=== PATIENT | male | born 1985 | race Hispanic/Latino ===

== ENCOUNTER 2018-03-19 02:02 | Emergency (ER) | payer SELFPAY ==
[2018-03-19 02:11] VITALS: O2SAT 96
[2018-03-19] MEDS ORDERED: Sodium Chloride 0.9% 1,000 ML IV STA ×2 (02:20→07:01)
--- NOTE | 2018-03-19 02:55 | ED PDOC ---
HPI: Psych/Substance Abuse Time Seen by Provider: 03/19/18 02:19 Chief Complaint (Nursing): Substance Abuse ED Caveat: Intoxicated History Per: Other (Girlfriend) Onset/Duration Of Symptoms: Hrs Current Symptoms Are (Timing): Still Present Additional Complaint(s): (Hx limited by intoxication, history gathered by girlfriend) No PMHx presenting with alcohol intoxication and possible overdose. Girlfriend states that it is the one year anniversary of his brother's and also has a terminally ill father, has had a lot of home stress and today drank alcohol and took 3 benadryl to "kill himself." Patient denies this, states he feels fine, states he did not take benadryl but took "xanax", 3 pills to go to sleep, but denies suicidal or homidical ideation. Girlfriend states that he has made suicidal remarks in the past. Past Medical History Reviewed: Vital Signs, Unable To Obtain Vital Signs: Last Vital Signs Temp 97.8 F 03/19/18 02:08 Pulse 125 H 03/19/18 02:08 Resp 17 03/19/18 02:08 BP 155/106 H 03/19/18 02:08 Pulse Ox 96 03/19/18 02:08 - Family History Family History: States: Unknown Family Hx - Immunization History Hx Tetanus Toxoid Vaccination: No - Home Medications Home Medications: Ambulatory Orders Medication Instructions Recorded Cephalexin [Keflex] 500 mg PO TID #21 tab 09/29/15 - Allergies Allergies/Adverse Reactions: Allergies Allergy/AdvReac Type Severity Reaction Status Date / Time No Known Allergies Allergy Verified 09/29/15 13:18 Review of Systems Review Of Systems: ROS cannot be obtained secondary to pt's inabilty to answer questions. Physical Exam - Reviewed Nursing Documentation Reviewed: Yes Vital Signs Reviewed: Yes - Physical Exam Appears: Negative for: Well (Disheveled, intoxicated appearing) Head Exam: Positive for: ATRAUMATIC, NORMAL INSPECTION, NORMOCEPHALIC Skin: Positive for: Normal Color, Warm, DRY Eye Exam: Positive for: EOMI, Normal appearance, PERRL ENT: Positive for: Other (Dry mucus membranes, cracked lips) Neck: Positive for: Normal, Painless ROM, Supple Cardiovascular/Chest: Positive for: Tachycardia Respiratory: Positive for: CNT, Normal Breath Sounds Gastrointestinal/Abdominal: Positive for: Normal Exam, Soft Back: Positive for: Normal Inspection Extremity: Positive for: Normal ROM Neurologic/Psych: Positive for: Alert, Oriented - Laboratory Results Result Diagrams: 03/19/18 03:09 03/19/18 03:09 - ECG O2 Sat by Pulse Oximetry: 96 Medical Decision Making Medical Decision Makin Patient presenting with apparent overdose --Patient drowsy currently, tachycardic, dry mucus membranes --Poison control recommends monitoring and repeat EKGs, symptomatic treatment --Pending crisis eval 0500 --Patient stable 0700 --Pending crisis decision, will endose to Dr Plasencia Disposition - Clinical Impression Clinical Impression: Overdose - Patient ED Disposition Is Patient to be Admitted: Transfer of Care - Disposition Disposition: Transfer of Care Disposition Time: 07:00 Condition: IMPROVED Forms: [facility] (Italian) Patient Signed Over To: Hiro Mitchell Handoff Comments: pending crisis
[2018-03-19 03:12] LABS: BASO # 0.1 K/uL (0.0-0.2); BASO % 0.5 % (0.0-2.0); EOS # 0.1 K/uL (0.0-0.7); EOS % 1.2 % (0.0-4.0); HEMOGLOBIN 14.4 g/dL (12.0-18.0); LYMPH # 2.1 K/uL (1.0-4.3); LYMPH % 18.6 % (20.0-40.0); MEAN CELL VOLUME 87.4 fl (80.0-94.0); MEAN CORPUSCULAR HEMOGLOBIN 28.8 pg (27.0-31.0); MONO # 0.5 K/uL (0.0-0.8); MONO % 4.7 % (0.0-10.0); NEUT # 8.6 K/uL (1.8-7.0); NRBC % 0.2 % (0.0-0.0); RBC 4.99 Mil/uL (4.40-5.90); RED CELL DISTRIBUTION WIDTH 14.2 % (11.5-14.5); WHITE BLOOD COUNT 11.4 K/uL (4.8-10.8)
[2018-03-19 03:21] LABS: ACETAMINOPHEN < 10.0 ug/ml (10.0-30.0); SALICYLATE < 1.0 mg/dl
[2018-03-19 03:22] LABS: ALB/GLOB RATIO 1.3 (1.0-2.1); ALBUMIN 4.7 g/dL (3.5-5.0); ALT/SGPT 69 U/L (21-72); AST/SGOT 88 U/L (17-59); BILIRUBIN,DIRECT 0.3 mg/ml (0.0-0.4); BLOOD UREA NITROGEN 9 mg/dl (9-20); CALCIUM 9.2 mg/dL (8.4-10.2); GFR NON-AFRICAN AMERICAN > 60
[2018-03-19 04:53] LABS: BARBITURATES, UR NEGATIVE (NEGATIVE); BENZODIAZEPINES, UR POSITIVE (NEGATIVE); OPIATES, UR NEGATIVE (NEGATIVE); PHENCYCLIDINE, UR NEGATIVE (NEGATIVE)
--- NOTE | 2018-03-19 07:42 | ED PDOC ---
- Laboratory Results Result Diagrams: 03/19/18 03:09 03/19/18 03:09 - ECG O2 Sat by Pulse Oximetry: 96 - Progress ED Course And Treament: 700: Took over care from Dr. Sosa. Fu on crisis. 740: Stable. AAOx3. Pain free. Tolerated PO. FU with pcp. Ambulated with no issues. Crisis saw pt. Does not meet criteria for admit. Clinical sobriety reached. Has capacity to make decisions. Disposition - Clinical Impression Clinical Impression: Depression, Alcohol abuse - POA Present On Arrival: None - Disposition Referrals: [facility] [Outside] - 03/22/18 Disposition: Routine/Home Disposition Time: 07:42 Condition: STABLE Additional Instructions: Return if not better in 3 days. Instructions: Depression, Alcohol Abuse and Alcoholism (DC)
[2018-03-19 07:49] VITALS: BP 140/84; PULSE 109; RESP 18; TEMP 99
--- NOTE | 2018-03-19 19:40 | CARD ---
APPROVED REPORT Date of service: 03/19/2018 EKG Measurement Heart [id number] <Conclusion> Sinus tachycardia Otherwise normal ECG
--- NOTE | 2018-03-19 19:43 | CARD ---
APPROVED REPORT Date of service: 03/19/2018 EKG Measurement Heart [id number] MN [id number] <Conclusion> Sinus tachycardia Otherwise normal ECG
== END 2018-03-19 08:09 | disposition home or self-care (01) ==
LOC: H.ER 02:02
DX: F10.10 Alcohol abuse, uncomplicated (principal); F32.9 Major depressive disorder, single episode, unspecified; R00.0 Tachycardia, unspecified
CPT/HCPCS: 80048; 80076; 82948; 85025; 93005; 99285; G0480; J7030